=== PATIENT | male | born 1970 | race Caucasian/White ===

== ENCOUNTER 2023-06-20 10:40 | Emergency (ER) | payer MEDICAID ==
[~2023-06-20] VITALS: Ht 175.3 cm; Wt 86.4 kg
[2023-06-20 10:41] VITALS: BP 190/90; PULSE 71; RESP 16; TEMP 98.2; O2SAT 98
[2023-06-20] MEDS ORDERED: CEPH-585 PO (12:02)
[2023-06-20] MEDS ORDERED: SULF1TAB49 PO (12:02)
== END 2023-06-20 12:12 | disposition home or self-care (01) ==
LOC: ER 10:40
DX: L03.114 Cellulitis of left upper limb (principal); Z79.899 Other long term (current) drug therapy
CPT/HCPCS: 73080; 99283

== ENCOUNTER 2024-08-06 14:49 | Emergency (ER) | payer MEDICAID ==
[~2024-08-06] VITALS: Ht 175.3 cm; Wt 84.8 kg
[2024-08-06 14:52] VITALS: BP 147/108; PULSE 107; RESP 16; TEMP 98; O2SAT 96
== END 2024-08-06 17:31 | disposition home or self-care (01) ==
LOC: ER 14:50
DX: F22 Delusional disorders (principal)
CPT/HCPCS: 70250; 99283